=== PATIENT | female | born 1970 | race Caucasian/White ===

== ENCOUNTER 2019-10-09 21:58 | Emergency (ER) | payer BC ==
[2019-10-09 22:41] LABS: ABSOLUTE BASOPHILS # (AUTO) 0.1 10^3/uL (0.0-0.2); ABSOLUTE EOSINOPHILS # (AUTO) 0.2 10^3/uL (0.0-0.6); ABSOLUTE LYMPHOCYTES (AUTO) 1.4 10^3/uL (0.5-4.7); ABSOLUTE MONOCYTES (AUTO) 0.7 10^3/uL (0.1-1.4); BASOPHILS % (AUTO) 1.1 % (0-2); EOSINOPHILS % (AUTO) 2.3 % (0-6); HEMATOCRIT 37.8 % (36.0-47.0); LYMPHOCYTES % (AUTO) 19.6 % (13-45); MEAN CORPUSCULAR HEMOGLOBIN 30.3 pg (27.0-33.4); MEAN CORPUSCULAR HGB CONC 34.5 g/dL (32.0-36.0); MEAN CORPUSCULAR VOLUME 88 fl (80-97); MONOCYTES % (AUTO) 9.5 % (3-13); PLATELET COUNT 273 10^3/uL (150-450); RED CELL DISTRIBUTION WIDTH 13.6 % (11.5-14.0); SEGMENTED NEUTROPHILS % (AUTO) 67.5 % (42-78); TOTAL CELLS COUNTED % (AUTO) 100 %; WHITE BLOOD COUNT 7.3 10^3/uL (4.0-10.5)
[2019-10-10] MEDS ORDERED: ACETAMINOPHEN 325 MG TABLET PO ONE (00:42)
[2019-10-10 00:47] LABS: APPEARANCE,URINE CLOUDY; BILIRUBIN,URINE NEGATIVE (NEGATIVE); COLOR,URINE RED; GLUCOSE, URINE NEGATIVE (NEGATIVE); KETONES,URINE NEGATIVE (NEGATIVE); LEUKOCYTE ESTERASE,URINE SMALL (NEGATIVE); NITRITE,URINE NEGATIVE (NEGATIVE); PROTEIN,URINE 100 mg/dL (NEGATIVE); UROBILINOGEN,URINE NEGATIVE mg/dL (<2.0)
[2019-10-10] MEDS ORDERED: NORMAL SALINE 1000 ML 1,000 ML IV ONE (00:58)
--- NOTE | 2019-10-10 01:43 | ER Document Report ---
ED General <YARELI WITT - Last Filed: 10/10/19 01:37> - General Mode of Arrival: Ambulatory Information source: Patient <ISAIAS MCCAIN - Last Filed: 10/11/19 04:46> - General Chief Complaint: Vag Bleeding, +preg <12wks Stated Complaint: /BLEEDING AND PAIN Time Seen by Provider: 10/09/19 23:27 Primary Care Provider: ANABEL MIJARES MD [Primary Care Provider] - Follow up as needed - HPI Notes: Chief complaint: Vaginal spotting and suprapubic cramping 48-year-old 2 para 0 currently with twins at about 4 to 6 weeks gestation on the basis of prior office ultrasound. She has had problems with spotting and mild cramping for several days and has been seen twice in her [facility] office. She is now passing some larger clots. She continues to complain of intermittent suprapubic cramping. She denies fever, chills, nausea or vomiting. (YARELI WITT) - Related Data Allergies/Adverse Reactions: morphine Allergy (Verified 10/09/19 22:08) Past Medical History - General Information source: Patient - Social History Smoking Status: Never Smoker Patient has suicidal ideation: No Patient has homicidal ideation: No <YARELI WITT - Last Filed: 10/10/19 01:37> - Social History Family History: Reviewed & Not Pertinent <ISAIAS MCCAIN - Last Filed: 10/11/19 04:46> Review of Systems <YARELI WITT - Last Filed: 10/10/19 01:37> - Review of Systems Notes: Constitutional: Negative for fever. HENT: Negative for sore throat. Eyes: Negative for visual changes. Cardiovascular: Negative for chest pain. Respiratory: Negative for shortness of breath. Gastrointestinal: As per HPI. Genitourinary: As per HPI. Musculoskeletal: Negative for back pain. Skin: Negative for rash. Neurological: Negative for headaches, weakness or numbness. 10 point ROS negative except as marked above and in HPI. (YARELI WITT) Physical Exam <YARELI WITT - Last Filed: 10/10/19 01:37> - Vital signs Vitals: Temp Pulse Resp BP Pulse Ox 98.3 F 76 16 107/70 98 10/09/19 22:05 10/09/19 22:05 10/09/19 22:05 10/09/19 22:05 10/09/19 22:05 - Notes Notes: GENERAL: Slender female appearing approximately stated age who looks moderately uncomfortable. SKIN: Good turgor no rashes. HEAD: Normocephalic atraumatic. EYES: PERRLA. EOMI. Conjunctivae and sclerae clear. EARS: CANALS AND TMS CLEAR. NOSE: CLEAR. MOUTH: Moist mucosa. Good dentition. No stridor or edema. No drooling. NECK: Supple. No masses or thyromegaly. No adenopathy. Carotids 2+ without bruits. No JVD. BACK: Symmetrical without tenderness. CHEST: Respirations unlabored. Breath sounds clear and symmetrical. HEART: Regular rhythm. No murmur gallop or rub. ABDOMEN: Mild suprapubic tenderness. Soft without masses, organomegaly or rebound. Bowel sounds normally active. No bruits. Pelvic: Speculum exam shows cervical loss closed with some small blood clots in the vaginal vault. Uterus is mildly enlarged and tender on bimanual exam. No adnexal masses. EXTREMITIES: No edema. No calf tenderness. Cap refill less than 1.5 seconds. Dorsalis pedis and posterior tibial pulses 3+ and symmetrical. NEUROLOGICAL: GCS 15. Alert and oriented x3. Fluent speech. Cranial nerves II through XII intact. Sensorimotor and cerebellar normal. Normal tone. PSYCHIATRIC: Appropriate affect. (YARELI WITT) Course - Laboratory Result Diagrams: 10/09/19 22:25 <YARELI WITT - Last Filed: 10/10/19 01:37> - Laboratory Result Diagrams: 10/09/19 22:25 <ISAIAS MCCAIN - Last Filed: 10/11/19 04:46> - Re-evaluation Re-evalutation: 10/10/19 01:42 Patient is Rh- and RhoGam has been requested. Quantitative beta-hCG is 4400. Hemoglobin is normal. Ultrasound is pending. Final disposition this patient will be turned over to Dr. Mccain at 0200 hrs. (YARELI WITT) 10/10/19 04:12 Patient received RhoGam, states that she feels much better, bleeding has ceased. Ultrasound revealed 2 intrauterine hypoechoic areas which are irregularly shaped. These could represent fluid, failed intrauterine , or even possible hematoma. These are seen at the lower segment of the uterus. I reviewed the findings of the ultrasound with the patient and the results of the quantitative beta-hCG. Dr. Mijares, TITLE INVESTIGATOR diamond die maker was contacted, she stated that the patient can be sent home, precautions regarding heavy bleeding given and she can keep her appointment with the TITLE INVESTIGATOR office next week for a repeat quantitative hCG (2189) and ultrasound. I have relayed this information to the patient and she is in agreement with that plan. 10/10/19 04:15 (ISAIAS MCCAIN) - Vital Signs Vital signs: Temp Pulse Resp BP Pulse Ox 98.0 F 65 16 126/81 H 100 10/10/19 04:07 10/10/19 04:07 10/10/19 04:07 10/10/19 04:07 10/10/19 04:07 - Laboratory Laboratory results interpreted by me: 10/09/19 10/10/19 22:25 00:20 Beta HCG, Quant 2180.90 H Urine Protein 100 H Urine Blood LARGE H Ur Leukocyte Esterase SMALL H 10/10/19 04:15 I have reviewed laboratory data and used this information for the treatment decisions regarding the patient. (ISAIAS MCCAIN) Discharge <YARELI WITT - Last Filed: 10/10/19 01:37> <ISAIAS MCCAIN - Last Filed: 10/11/19 04:46> - Discharge Clinical Impression: Threatened miscarriage in early Twin gestation in first trimester Qualifiers: Multiple gestation type: unspecified Qualified Code(s): O30.001 - Twin , unspecified number of placenta and unspecified number of amniotic sacs, first trimester Rh negative status during Qualifiers: Trimester: first trimester Qualified Code(s): O26.891 - Other specified related conditions, first trimester Condition: Good Disposition: HOME, SELF-CARE Instructions: Rhogam ([facility]), Threatened Miscarriage ([facility]) Additional Instructions: You were diagnosed with bleeding in early with a Rh- status. RhoGam was given, and the quantitative hCG and ultrasound performed continues to be nondiagnostic. Please keep the appointment with your TITLE INVESTIGATOR next week. If you have heavy bleeding greater than 2 pads per hour return to the emergency department for further evaluation and treatment. You may use Tylenol for pain please avoid NSAIDs (ibuprofen Aleve). HOME CARE INSTRUCTIONS & INFORMATION: Thank you for choosing us for your medical needs. We hope you're satisfied with the care you received. After you leave, you must properly care for your problem and, at the same time, observe its progress. Any condition can change. Some illnesses can change rapidly over hours or days. If your condition worsens, return to the Emergency Department or see your physician promptly. ABOUT YOUR X-RAYS AND EKG'S: If you had an EKG or X-rays taken, they have been read by the Emergency Physician. The X-rays and EKG's will also be read by a Radiologist or Horticulture/Floriculture Teacher within 24 hours. If discrepancies are noted, you will be notified by telephone. Please be certain the ED has a correct telephone number & address where you can be reached. Also, realize that some fractures or abnormalities do not show up on initial X-rays. If your symptoms continue, see your physician. ABOUT YOUR LABORATORY TEST: If you had laboratory tests, the results have been reviewed by the Emergency Physician. Some test results (for example cultures) may not be available for several days. You will be contacted if any test result shows you need additional treatment. Please be certain the ED has a correct telephone number and address where you can be reached. ABOUT YOUR MEDICATIONS: You will receive instructions on how to take your med icine on the prescription label you receive. Additional information may be provided by the Pharmacy. If you have questions afterwards, call the ED for clarification or further instructions. Some prescribed medications may cause drowsiness. Do not perform tasks such as driving a car or operating machinery without consulting your Pharmacist. If you feel you need a refill of pain medication, your condition will need re-evaluation. Please do not call for a refill of any medication. ABOUT YOUR SIGNATURE: Signature of this document acknowledges to followin. Understanding that you received emergency treatment and that you may be released before al medical problems are known or treated. Please be certain the ED has a correct phone number & address where you can be reached. 2. Acknowledgement that you will arrange for follow-up care as recommended. 3. Authorization for the Emergency Physician to provide information to your follow-up Physician in order to maximize your care. AT ANY TIME, IF YOUR SYMPTOMS CHANGE SIGNIFICANTLY OR WORSEN OR YOU DEVELOP NEW SYMPTOMS, RETURN TO THE EMERGENCY DEPARTMENT IMMEDIATELY FOR RE-EVALUATION. OUR GOAL IS TO PROVIDE EXCELLENT MEDICAL CARE! WE HOPE THAT WE HAVE MET YOUR EXPECTATIONS DURING YOUR EMERGENCY DEPARTMENT VISIT AND THAT YOU FEEL YOU HAVE RECEIVED EXCELLENT CARE! Referrals: ANABEL MIJARES MD [Primary Care Provider] - Follow up as needed
--- NOTE | 2019-10-10 03:16 | RADIOLOGY REPORT (SQ) ---
Ultrasound of the pelvis: 10/10/2019 2:11 AM CDT HISTORY: 48-year-old patient with vaginal bleeding. TECHNIQUE: Multiple grayscale and color Doppler images of the pelvis were obtained transvaginally. COMPARISON: None available FINDINGS: The uterus measures 10.5 x 4.4 x 5.6 cm. The cervix measures at least 3.1 cm in length. The endometrium is thickened with two hypoechoic areas which are irregular. These may have a pole or yolk sac within them. These do not demonstrate a normal appearance abnormal intrauterine gestational sac. One area is measured with a crown-rump length of 0.53 cm, corresponding to six weeks and two days. Another area measures 0.22 cm corresponding to five weeks and five days. No myometrial mass is seen. No free intraperitoneal fluid is seen within the posterior cul-de-sac. The bilateral ovaries were not visualized. IMPRESSION: There are two intrauterine hypoechoic areas which are irregular shaped. These could represent fluid, failed intrauterine , or even possibly hematomas. These are seen at the lower uterine segment. The bilateral ovaries were not visualized. Interval follow-up with quantitative beta hCG levels is recommended due to concerns of failed intrauterine pregnancies. With ovaries not visualized, ectopic is not fully excluded.
[2019-10-10 04:07] VITALS: BP 126/81
== END 2019-10-10 04:48 | disposition home or self-care (01) ==
LOC: ER 21:58
DX: O30.001 Twin pregnancy, unspecified number of placenta and unspecified number of amniotic sacs, first trimester (principal); O20.0 Threatened abortion; O26.891 Other specified pregnancy related conditions, first trimester; R10.9 Unspecified abdominal pain; Z88.8 Allergy status to other drugs, medicaments and biological substances; Z3A.01 Less than 8 weeks gestation of pregnancy
CPT/HCPCS: 99284; 96372; 96360; 86900; 86901; 36415; 86850; 84702; 85025; 81001; 76817; J2790; J7030

== ENCOUNTER → 2019-11-30 | Outpatient (CLI) | payer BC ==
[2019-11-30 11:25] LABS: ABSOLUTE EOSINOPHILS # (AUTO) 0.1 10^3/uL (0.0-0.6); ABSOLUTE LYMPHOCYTES (AUTO) 1.1 10^3/uL (0.5-4.7); ABSOLUTE MONOCYTES (AUTO) 0.2 10^3/uL (0.1-1.4); ABSOLUTE NEUT (AUTO) 1.5 10^3/uL (1.7-8.2); BASOPHILS % (AUTO) 1.2 % (0-2); EOSINOPHILS % (AUTO) 2.8 % (0-6); HEMATOCRIT 38.6 % (36.0-47.0); HEMOGLOBIN 13.1 g/dL (12.0-15.5); LYMPHOCYTES % (AUTO) 37.3 % (13-45); MEAN CORPUSCULAR HEMOGLOBIN 29.8 pg (27.0-33.4); MEAN CORPUSCULAR VOLUME 88 fl (80-97); MONOCYTES % (AUTO) 8.3 % (3-13); PLATELET COUNT 248 10^3/uL (150-450); RED CELL DISTRIBUTION WIDTH 13.7 % (11.5-14.0); SEGMENTED NEUTROPHILS % (AUTO) 50.4 % (42-78); TOTAL CELLS COUNTED % (AUTO) 100 %; WHITE BLOOD COUNT 2.9 10^3/uL (4.0-10.5)
[2019-11-30 11:46] LABS: ALBUMIN 4.1 g/dL (3.5-5.0); ALKALINE PHOSPHATASE 80 U/L (38-126); ANION GAP 7 (5-19); ASPARTATE AMINO TRANSFERASE 24 U/L (14-36); BILIRUBIN,TOTAL 0.5 mg/dL (0.2-1.3); BLOOD UREA NITROGEN 11 mg/dL (7-20); CALCIUM 8.6 mg/dL (8.4-10.2); CARBON DIOXIDE 27 mmol/L (22-30); CHLORIDE 103 mmol/L (98-107); GLUCOSE 104 mg/dL (75-110); POTASSIUM 3.9 mmol/L (3.6-5.0); TOTAL PROTEIN 7.5 g/dL (6.3-8.2)
== END ==
LOC: OD 10:57
PROVIDERS: ATTEND Specialist
DX: R10.32 Left lower quadrant pain (principal)
CPT/HCPCS: 36415; 80053; 85025